=== PATIENT | female | born 1980 | race African-American/Black ===

== ENCOUNTER 2016-10-15 22:42 | Emergency (ER) | payer OTHER ==
[~2016-10-15] VITALS: Ht 160 cm; Wt 74.8 kg
[~2016-10-15 22:42] MED LIST: ASPI1TAB30 PO; CETI10TA22 PO; DOCU-27 PO; FLUT100D IH; IBUP-1060 PO; METH-37 PO; ONDA4TAB10 SL; OXYC-323 PO; PNV1TABL25 PO; PRED20TA PO; TRAM-29 PO; VENTOLIN HFA18 GM IH
[2016-10-15 23:10] VITALS: BP 148/77
--- NOTE | 2016-10-15 23:44 | PHYS DOC ---
Past Medical History Past Medical History: Asthma, Sciatica Past Surgical History: Additional Past Surgical Histo: C SECTION X3 Additional Information: 08/21 PPD Alcohol Use: Rarely Drug Use: None Adult General Chief Complaint Chief Complaint: COUGH HPI HPI Patient is a 36 year old female with history of asthma who presents with cough and shortness of breath for 4 days. Her cough has been productive. She also reports nasal drainage, sore throat, and body aches. She denies fever, ear pain , nausea, or vomiting. She has been using her inhaler every 3-4 hours. She did receive a flu shot this season. She denies any known sick contacts. Her PCP is Dr. Armani Neal. Review of Systems Review of Systems Constitutional: Denies fever or chills. [] Eyes: Denies change in visual acuity, redness, or eye pain. [] HENT: Denies ear pain. Reports sore throat and nasal drainage. Respiratory: Reports cough and shortness of breath. Cardiovascular: Denies chest pain, palpitations or edema. [] GI: Denies abdominal pain, nausea, vomiting, bloody stools or diarrhea. [] Musculoskeletal: Denies back pain or joint pain. Reports body aches. Integument: Denies rash or skin lesions. [] Neurologic: Denies headache, focal weakness or sensory changes. [] All systems reviewed and negative unless otherwise stated in the HPI. Allergies Allergies Allergies Coded Allergies Type Severity Reaction Last Updated Verified No Known Drug Allergies 04/26/16 No Physical Exam Physical Exam Constitutional: Well developed, well nourished, no acute distress, non-toxic appearance. [] HENT: Normocephalic, atraumatic, bilateral external ears normal, oropharynx moist, no oral exudates, nose normal. Bilateral TMs without erythema or bulging. There is no posterior pharyngeal erythema or tonsillar edema. Bilateral nasal turbinates are swollen and erythematous with purulent drainage, left more marked than the right. Eyes: PERRLA, EOMI, conjunctiva normal, no discharge. [] Neck: Normal range of motion, no tenderness, supple, no stridor. [] Cardiovascular: Heart rate regular rhythm, no murmur [] Lungs & Thorax: Bilateral breath sounds clear to auscultation without wheezes, rales, or rhonchi. Skin: Warm, dry, no erythema, no rash. [] Neurologic: Alert and oriented X 3, normal motor function, normal sensory function, no focal deficits noted. [] Psychologic: Affect normal, judgement normal, mood normal. [] Current Patient Data Vital Signs Vital Signs Date Time Temp Pulse Resp B/P Pulse Ox O2 Delivery O2 Flow Rate FiO2 10/15/16 23:10 98.5 67 20 100 Room Air 98.5 Lab Values Laboratory Tests Test 10/15/16 23:35 Influenza Type A Antigen Negative (NEGATIVE) Influenza Type B Antigen Negative (NEGATIVE) EKG EKG [] Radiology/Procedures Radiology/Procedures [] Course & Med Decision Making Course & Med Decision Making Pertinent Labs and Imaging studies reviewed. (See chart for details) [] Dragon Disclaimer Dragon Disclaimer This electronic medical record was generated, in whole or in part, using a voice recognition dictation system. Departure Departure Impression: Primary Impression: Bronchitis Disposition: HOME, SELF-CARE Condition: STABLE Referrals: ARMANI NEAL MD (PCP) Patient Instructions: Acute Bronchitis, [id number] Additional Instructions: Your flu test was negative today. Please complete all of the prescribed steroids, even if you are feeling better. Please use your inhaler as directed for cough or shortness of breath. Please follow up with your doctor within the next week. Return to the emergency department if you have any new or concerning symptoms. Scripts Prednisone 20 Mg [id number] Mg PO DAILY 5 Days Prov:MARK MELÉNDEZ 10/16/16 MARK MELÉNDEZ Oct 15, 2016 23:44
[2016-10-15 23:57] LABS: OBC FLU VALID
[2016-10-16] MEDS ORDERED: PRED20TA PO (00:08)
== END 2016-10-16 00:20 | disposition home or self-care (01) ==
LOC: ER 22:42
DX: J40 Bronchitis, not specified as acute or chronic (principal); J45.909 Unspecified asthma, uncomplicated; F17.200 Nicotine dependence, unspecified, uncomplicated
CPT/HCPCS: 87804; 99284

== ENCOUNTER 2017-05-25 23:30 | Emergency (ER) | payer OTHER ==
[~2017-05-25] VITALS: Ht 160 cm; Wt 81.6 kg
[~2017-05-25 23:30] MED LIST changes: -ASPI1TAB30 PO; +ASPI1TAB31 PO; +DOCU-109 PO; -DOCU-27 PO; -TRAM-29 PO; +TRAM-48 PO
[2017-05-25 23:33] VITALS: BP 116/69
--- NOTE | 2017-05-25 23:46 | PHYS DOC ---
Past Medical History Past Medical History: Asthma, Sciatica Past Surgical History: Additional Past Surgical Histo: C SECTION X3 Alcohol Use: Rarely Drug Use: None Adult General Chief Complaint Chief Complaint: ANKLE PROBLEM [facility] HPI Patient is a 36 year old female presents to the emergency department with complaints of right foot pain. She complains that 2 weeks ago she was jumping rope with her daughter and she inversion type injury to the right ankle. States that she was doing fine until yesterday when she tripped over her daughter causing a plantar flexion of the ankle. She presents with complaints of pain across the dorsal aspect of the foot and in the right ankle. She has no radiation pain. She has been ambulatory and extremity since incident. Review of Systems Review of Systems Constitutional: Denies fever or chills [] Eyes: Denies change in visual acuity, redness, or eye pain [] HENT: Denies nasal congestion or sore throat [] Respiratory: Denies cough or shortness of breath [] Cardiovascular: No additional information not addressed in HPI [] GI: Denies abdominal pain, nausea, vomiting, bloody stools or diarrhea [] : Denies dysuria or hematuria [] Musculoskeletal: Right foot and ankle pain Integument: Denies rash or skin lesions [] Neurologic: Denies headache, focal weakness or sensory changes [] Endocrine: Denies polyuria or polydipsia [] Allergies Allergies Allergies Coded Allergies Type Severity Reaction Last Updated Verified No Known Drug Allergies 04/26/16 No Physical Exam Physical Exam Constitutional: Well developed, well nourished, no acute distress, non-toxic appearance. [] HENT: Normocephalic, atraumatic, bilateral external ears normal, oropharynx moist, no oral exudates, nose normal. [] Eyes: PERRLA, EOMI, conjunctiva normal, no discharge. [] Neck: Normal range of motion, no tenderness, supple, no stridor. [] Cardiovascular:Heart rate regular rhythm, no murmur [] Lungs & Thorax: Bilateral breath sounds clear to auscultation [] Abdomen: Bowel sounds normal, soft, no tenderness, no masses, no pulsatile masses. [] Skin: Warm, dry, no erythema, no rash. [] Back: No tenderness, no CVA tenderness. [] Extremities: Exam of the right lower extremity: Right knee exam unremarkable, right ankle with mild tenderness over lateral malleolus. She has no tenderness medially. Achilles tendon is intact. She has mild tenderness over the dorsal aspect of the foot. There is no swelling of the ankle or the foot. Neurovascular is intact distally. Neurologic: Alert and oriented X 3, normal motor function, normal sensory function, no focal deficits noted. [] Psychologic: Affect normal, judgement normal, mood normal. [] Current Patient Data Vital Signs Vital Signs Date Time Temp Pulse Resp B/P (MAP) Pulse Ox O2 Delivery O2 Flow Rate FiO2 05/25/17 23:33 98.4 84 16 97 Room Air 98.4 EKG EKG [] Radiology/Procedures Radiology/Procedures Right foot and right ankle x-ray[] no acute bony abnormalities Course & Med Decision Making Course & Med Decision Making Pertinent Labs and Imaging studies reviewed. (See chart for details) [] Dragon Disclaimer Dragon Disclaimer This electronic medical record was generated, in whole or in part, using a voice recognition dictation system. Departure Departure Impression: Primary Impression: Ankle sprain Disposition: 01 HOME, SELF-CARE Condition: STABLE Referrals: TATI SKELTON MD (PCP) Patient Instructions: Ankle Sprain, RICE - Routine Care for Injuries Scripts Ibuprofen (IBUPROFEN) 800 Mg Tablet 800 MG PO PRN Q6HRS Y for INFLAMMATION, #20 TAB Prov: IJEOMA HUTCHINSON APRN 05/25/17 Problem Qualifiers Primary Impression: Ankle sprain Encounter type: initial encounter Involved ligament of ankle: unspecified ligament Laterality: right Qualified Codes: S93.401A - Sprain of unspecified ligament of right ankle, initial encounter IJEOMA HUTCHINSON APRN May 25, 2017 23:46
[2017-05-25] MEDS ORDERED: IBUP-1060 PO (23:53)
--- NOTE | 2017-05-26 09:55 | RAD ---
Right ankle, 3 views, 05/25/2017: History: Ankle pain No fracture or dislocation is identified. There is mild subcutaneous edema. IMPRESSION: No acute bony abnormality is detected. Right foot, 3 views, 05/25/2017: No fracture or dislocation is identified. No significant arthritic change is seen. There is moderate diffuse soft tissue swelling.
== END 2017-05-25 23:56 | disposition home or self-care (01) ==
LOC: ER 23:30
DX: S93.401A Sprain of unspecified ligament of right ankle, initial encounter (principal); J45.909 Unspecified asthma, uncomplicated; M54.30 Sciatica, unspecified side; W03.XXXA Other fall on same level due to collision with another person, initial encounter; Y93.89 Activity, other specified; Y92.89 Other specified places as the place of occurrence of the external cause; Y99.8 Other external cause status
CPT/HCPCS: 73610; 73630; 99284

== ENCOUNTER → 2017-07-15 | Outpatient (CLI) | payer OTHER ==
--- NOTE | 2017-07-15 14:02 | RAD ---
Pelvis with left hip, 3 views, 07/15/2017: History: Fall, left hip pain and swelling No fracture or dislocation is identified. The hip joint spaces are well-maintained. Surgical clips overlie the pelvis bilaterally, probably related to tubal ligation surgery. IMPRESSION: No acute bony abnormality is detected.
== END | disposition home or self-care (01) ==
LOC: RAD 10:59
PROVIDERS: ATTEND Physician Assistant
DX: M25.552 Pain in left hip (principal); M25.452 Effusion, left hip; Z91.81 History of falling
CPT/HCPCS: 73502

== ENCOUNTER 2017-10-05 00:36 | Emergency (ER) | payer OTHER ==
[2017-10-05 01:28] LABS: URINE HCG POC HCG NEGATIVE (Negative)
[2017-10-05 01:38] LABS: BILIRUBIN,URINE NEGATIVE (NEG); CLARITY,URINE CLEAR; COLOR,URINE YELLOW; GLUCOSE,URINE NEGATIVE (NEG); NITRITE,URINE NEGATIVE (NEG); PH,URINE 6.5; PROTEIN,URINE NEGATIVE (NEG-TRACE)
[2017-10-05 01:50] LABS: BACTERIA,URINE MODERATE /HPF (0-FEW); RBC,URINE 0 /HPF (0-2); SQUAMOUS EPITHELIAL CELL,UR MANY /LPF; WBC,URINE OCC /HPF (0-4)
[2017-10-05] MEDS: HYDROcodone/APAP 5/325MG 1 TAB TABLET PO ×2 (03:28)
[2017-10-05 03:57] LABS: ADD MAN DIFF? NO
[2017-10-05 03:59] LABS: BASO # 0.1 x10^3/uL (0.0-0.2); BASO % 0 % (0-3); EOS # 0.2 x10^3/uL (0.0-0.7); EOS % 1 % (0-3); HEMATOCRIT 41.4 % (36.0-47.0); LYMPH % 23 % (24-48); MEAN CORPUSCULAR HEMOGLOBIN 32 pg (25-35); MEAN CORPUSCULAR HGB CONC 34 g/dL (31-37); MEAN CORPUSCULAR VOLUME 94 fL (79-100); MONO # 1.1 x10^3/uL (0.0-1.1); MONO % 9 % (0-9); NEUT # 8.8 x10^3uL (1.8-7.7); NEUT % 67 % (31-73); PLATELET COUNT 340 x10^3/uL (140-400); RED BLOOD COUNT 4.41 x10^6/uL (3.50-5.40); RED CELL DISTRIBUTION WIDTH 13.7 % (11.5-14.5); WHITE BLOOD COUNT 13.1 x10^3/uL (4.0-11.0)
[2017-10-05 04:09] LABS: ANION GAP 6 (6-14); BLOOD UREA NITROGEN 15 mg/dL (7-20); BUN/CREATININE RATIO 19 (6-20); CALCIUM 8.9 mg/dL (8.5-10.1); CARBON DIOXIDE 28 mmol/L (21-32); CHLORIDE 105 mmol/L (98-107); CREATININE 0.8 mg/dL (0.6-1.0); GFR 98.8; GLUCOSE 104 mg/dL (70-99); POTASSIUM 4.4 mmol/L (3.5-5.1); SODIUM 139 mmol/L (136-145)
[2017-10-05 04:14] LABS: ALBUMIN 3.7 g/dL (3.4-5.0); ALBUMIN/GLOBULIN RATIO 0.9 (1.0-1.7); ALK PHOS 59 U/L (46-116); ALT (SGPT) 16 U/L (14-59); AST (SGOT) 17 U/L (15-37); TOTAL BILIRUBIN 0.1 mg/dL (0.2-1.0); TOTAL PROTEIN 7.6 g/dL (6.4-8.2)
[2017-10-07 16:26] LABS: CHLAMYDIA PROBE Negative (Negative); GC PROBE Negative (Negative)
== END 2017-10-05 05:20 | disposition home or self-care (01) ==
LOC: ER 00:36
DX: N83.9 Noninflammatory disorder of ovary, fallopian tube and broad ligament, unspecified (principal); M54.30 Sciatica, unspecified side
CPT/HCPCS: 36415; 76830; 76856; 80053; 81001; 81025; 85025; 87086; 87491; 87591; 99285-25; Q0111

== ENCOUNTER 2017-10-17 09:19 | Day surgery (SDC) | payer OTHER ==
[~2017-10-17 09:19] MED LIST changes: -ASPI1TAB31 PO; -CETI10TA22 PO; +DEXAMETHASONE SOD PHOS 20 MG/5 ML VIAL.; -DOCU-109 PO; -FLUT100D IH; +HYDROmorphone 2 MG/ML VIAL IV; -IBUP-1060 PO; +LIDOCAINE 1% PF 2 ML VIAL. ID; +LIDOCAINE 2% PF Vial for OR 5 ML VIAL.; -METH-37 PO; +MIDAZOLAM HCL/PF 2 MG/2 ML VIAL.; +MORPHINE SULFATE 4 MG/ML DISP.SYRIN. IV; -ONDA4TAB10 SL; +ONDANSETRON PF 4 MG/2 ML VIAL.; +ONDANSETRON PF 4 MG/2 ML VIAL. IV; -OXYC-323 PO; -PNV1TABL25 PO; -PRED20TA PO; +PROPOFOL 20 ML IV; +ROCURONIUM 50 MG/5 ML VIAL.; +SURGICEL HEMOSTAT 4X8 EACH.; -TRAM-48 PO; -VENTOLIN HFA18 GM IH; +ceFAZolin 2GM PREMIX 2 GM/50 ML BAG IV; +fentaNYL PF VIAL 100 MCG/2 ML VIAL; +fentaNYL PF VIAL 100 MCG/2 ML VIAL IV
[2017-10-17] MEDS: IV RINGERS,LACTATED 1000ML 1,000 ML IV (09:58)
[2017-10-17 10:57] LABS: NEG OBC UR NEG; POS OBC UR POS; U PREG PATIENT NEGATIVE (NEG)
[2017-10-17] MEDS: BUPIVACAINE-EPI 0.25%-1:200000 MPF 30 ML VIAL. INJ (12:11)
[2017-10-17] MEDS ORDERED: fentaNYL PF VIAL 100 MCG/2 ML VIAL (12:23)
[2017-10-17] MEDS ORDERED: NEOSTIGMINE METHYLSULFATE 5 MG/5 ML SYRINGE. (12:31)
[2017-10-17] MEDS ORDERED: GLYCOPYRROLATE 1 MG/5 ML VIAL. (12:31)
[2017-10-17] MEDS ORDERED: SEVOFLURANE 61 TO 120 MINUTES. IH (12:31)
[2017-10-17] MEDS ORDERED: hydrALAZINE 20 MG/ML VIAL. (12:42)
[2017-10-17] MEDS: PROCHLORPERAZINE 10 MG/2 ML VIAL. IV (13:08)
[2017-10-17] MEDS: fentaNYL PF VIAL 100 MCG/2 ML VIAL IV ×2 (13:09→13:26)
[2017-10-17] MEDS: oxyCODONE/APAP 5/325 1 TAB TABLET PO (14:22)
== END 2017-10-17 15:07 | disposition home or self-care (01) ==
LOC: SURG 09:19
DX: N73.6 Female pelvic peritoneal adhesions (postinfective) (principal); N83.202 Unspecified ovarian cyst, left side; F32.9 Major depressive disorder, single episode, unspecified; G43.909 Migraine, unspecified, not intractable, without status migrainosus; I10 Essential (primary) hypertension; J45.909 Unspecified asthma, uncomplicated; E66.9 Obesity, unspecified; G47.30 Sleep apnea, unspecified; Z98.890 Other specified postprocedural states; Z87.440 Personal history of urinary (tract) infections
CPT/HCPCS: 58661; 81025; 88305; A4215; C1782; J0360; J0690; J0780; J1100; J2250; J2405; J2704; J2710; J3010; J3490; J7030; J7120

== ENCOUNTER → 2018-03-21 | Outpatient (CLI) | payer OTHER | END | disposition home or self-care (01) | LOC: KCIC 12:13 | DX: M25.562 Pain in left knee (principal); M25.551 Pain in right hip; J45.909 Unspecified asthma, uncomplicated; I10 Essential (primary) hypertension; F32.9 Major depressive disorder, single episode, unspecified; G43.909 Migraine, unspecified, not intractable, without status migrainosus; E66.9 Obesity, unspecified; Z87.440 Personal history of urinary (tract) infections | CPT/HCPCS: 73502; 73562 ==

== ENCOUNTER 2018-07-02 14:14 | Emergency (ER) | payer OTHER ==
[~2018-07-02] VITALS: Ht 160 cm; Wt 80.7 kg
[~2018-07-02 14:14] MED LIST changes: +ASPI1TAB31 PO; +CETI10TA22 PO; -DEXAMETHASONE SOD PHOS 20 MG/5 ML VIAL.; +DOCU-109 PO; +FLUT100D IH; -HYDROmorphone 2 MG/ML VIAL IV; +IBUP-1060 PO; -LIDOCAINE 1% PF 2 ML VIAL. ID; -LIDOCAINE 2% PF Vial for OR 5 ML VIAL.; +LISI10TA2 PO; +METH-37 PO; -MIDAZOLAM HCL/PF 2 MG/2 ML VIAL.; -MORPHINE SULFATE 4 MG/ML DISP.SYRIN. IV; +ONDA4TAB10 SL; -ONDANSETRON PF 4 MG/2 ML VIAL.; -ONDANSETRON PF 4 MG/2 ML VIAL. IV; +OXYC-323 PO; +PNV1TABL25 PO; +PRED20TA PO; -PROPOFOL 20 ML IV; -ROCURONIUM 50 MG/5 ML VIAL.; -SURGICEL HEMOSTAT 4X8 EACH.; +TRAM-48 PO; +TRAM50TA PO; +VENTOLIN HFA18 GM IH; -ceFAZolin 2GM PREMIX 2 GM/50 ML BAG IV; -fentaNYL PF VIAL 100 MCG/2 ML VIAL; -fentaNYL PF VIAL 100 MCG/2 ML VIAL IV
[2018-07-02 14:26] VITALS: BP 145/83
[2018-07-02 14:58] LABS: BASO % 0 % (0-3); EOS # 0.1 x10^3/uL (0.0-0.7); EOS % 2 % (0-3); HEMATOCRIT 42.4 % (36.0-47.0); HEMOGLOBIN 14.7 g/dL (12.0-15.5); LYMPH # 2.1 x10^3/uL (1.0-4.8); LYMPH % 27 % (24-48); MEAN CORPUSCULAR HEMOGLOBIN 33 pg (25-35); MEAN CORPUSCULAR HGB CONC 35 g/dL (31-37); MEAN CORPUSCULAR VOLUME 95 fL (79-100); MONO # 0.6 x10^3/uL (0.0-1.1); MONO % 8 % (0-9); NEUT # 4.7 x10^3uL (1.8-7.7); NEUT % 63 % (31-73); PLATELET COUNT 349 x10^3/uL (140-400); RED BLOOD COUNT 4.48 x10^6/uL (3.50-5.40); RED CELL DISTRIBUTION WIDTH 13.6 % (11.5-14.5); WHITE BLOOD COUNT 7.5 x10^3/uL (4.0-11.0)
[2018-07-02 15:14] LABS: CALCIUM 9.1 mg/dL (8.5-10.1); CREATININE 0.8 mg/dL (0.6-1.0); GFR 98.8; POTASSIUM 4.2 mmol/L (3.5-5.1)
[2018-07-02 15:20] LABS: ALBUMIN 3.8 g/dL (3.4-5.0); DIRECT BILIRUBIN 0.1 mg/dL (0.0-0.2); TOTAL BILIRUBIN 0.2 mg/dL (0.2-1.0); TOTAL PROTEIN 7.7 g/dL (6.4-8.2)
[2018-07-02 16:06] LABS: BILIRUBIN,URINE NEGATIVE (NEG); CLARITY,URINE CLOUDY; COLOR,URINE YELLOW; NITRITE,URINE NEGATIVE (NEG); PROTEIN,URINE NEGATIVE (NEG-TRACE); UROBILINOGEN,URINE 0.2 mg/dL (0.2 mg/dL)
[2018-07-02 16:22] LABS: BACTERIA,URINE FEW /HPF (0-FEW); RBC,URINE OCC /HPF (0-2); SQUAMOUS EPITHELIAL CELL,UR MOD /LPF; WBC,URINE OCC /HPF (0-4)
--- NOTE | 2018-07-02 20:10 | PHYS DOC ---
Past Medical History Past Medical History: Asthma, Hypertension Past Surgical History: Additional Past Surgical Histo: C SECTION X3 Alcohol Use: None Drug Use: None Adult General Chief Complaint Chief Complaint: OTHER COMPLAINTS [facility] HPI Patient is a 37 year old female who presents with complaints of multiple paresthesias. Patient complains of numbness in the bilateral hands and bilateral feet. Her symptoms have been worsening over the last 2 weeks. She has not had any trauma or pain. 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 She has no loss of motor strength. No fever or chills. She relates that she does have family members diagnosed with fibromyalgia who had similar symptoms when their diagnosis was initially made. The patient has been eating and drinking normally. No recent illness. No recent travel. She cannot say specific dermatomes that are affected. She complains of numbness and both hands over their entirety and both feet. Her symptoms are worse sometimes at night. Review of Systems Review of Systems Constitutional: Denies fever or chills Eyes: Denies change in visual acuity, redness, or eye pain HENT: Denies nasal congestion or sore throat Respiratory: Denies cough or shortness of breath Cardiovascular: No additional information not addressed in HPI GI: Denies abdominal pain, nausea, vomiting : Denies dysuria or hematuria Integument: Denies rash or skin lesions Neurologic: Denies headache, focal weakness Endocrine: Denies polyuria All other systems were reviewed and found to be within normal limits, except as documented in this note. Allergies Allergies Allergies Coded Allergies Type Severity Reaction Last Updated Verified No Known Drug Allergies 10/17/17 No Physical Exam Physical Exam Constitutional: Well developed, well nourished, no acute distress, non-toxic appearance HENT: Normocephalic, atraumatic, bilateral external ears normal, oropharynx moist Eyes: PERRLA, EOMI, conjunctiva normal Neck: Normal range of motion, no tenderness Cardiovascular:Heart rate regular rhythm Lungs & Thorax: Bilateral breath sounds clear to auscultation Skin: Warm, dry, no erythema, Extremities: No tenderness Neurologic: Alert and oriented X 3 Psychologic: Affect normal Current Patient Data Vital Signs Vital Signs Date Time Temp Pulse Resp B/P (MAP) Pulse Ox O2 Delivery O2 Flow Rate FiO2 07/02/18 14:26 98.7 67 16 145/83 (103) 100 Room Air 98.7 Lab Values Laboratory Tests Test 07/02/18 14:52 07/02/18 15:58 White Blood Count 7.5 x10^3/uL (4.0-11.0) Red Blood Count 4.48 x10^6/uL (3.50-5.40) Hemoglobin 14.7 g/dL (12.0-15.5) Hematocrit 42.4 % (36.0-47.0) Mean Corpuscular Volume 95 fL (79-100) Mean Corpuscular Hemoglobin 33 pg (25-35) Mean Corpuscular Hemoglobin Concent 35 g/dL (31-37) Red Cell Distribution Width 13.6 % (11.5-14.5) Platelet Count 349 x10^3/uL (140-400) Neutrophils (%) (Auto) 63 % (31-73) Lymphocytes (%) (Auto) 27 % (24-48) Monocytes (%) (Auto) 8 % (0-9) Eosinophils (%) (Auto) 2 % (0-3) Basophils (%) (Auto) 0 % (0-3) Neutrophils # (Auto) 4.7 x10^3uL (1.8-7.7) Lymphocytes # (Auto) 2.1 x10^3/uL (1.0-4.8) Monocytes # (Auto) 0.6 x10^3/uL (0.0-1.1) Eosinophils # (Auto) 0.1 x10^3/uL (0.0-0.7) Basophils # (Auto) 0.0 x10^3/uL (0.0-0.2) Sodium Level 137 mmol/L (136-145) Potassium Level 4.2 mmol/L (3.5-5.1) Chloride Level 102 mmol/L (98-107) Carbon Dioxide Level 29 mmol/L (21-32) Anion Gap 6 (6-14) Blood Urea Nitrogen 7 mg/dL (7-20) Creatinine 0.8 mg/dL (0.6-1.0) Estimated GFR (Cockcroft-Gault) 98.8 Glucose Level 99 mg/dL (70-99) Calcium Level 9.1 mg/dL (8.5-10.1) Total Bilirubin 0.2 mg/dL (0.2-1.0) Direct Bilirubin 0.1 mg/dL (0.0-0.2) Aspartate Amino Transferase (AST) 14 U/L (15-37) L Alanine Aminotransferase (ALT) 14 U/L (14-59) Alkaline Phosphatase 63 U/L (46-116) Total Protein 7.7 g/dL (6.4-8.2) Albumin 3.8 g/dL (3.4-5.0) Vitamin B12 Level 460 pg/mL (247-911) Serum Folate 7.30 ng/ml (3.2-20.0) Thyroid Stimulating Hormone (TSH) 0.863 uIU/mL (0.358-3.74) Urine Collection Type Unknown Urine Color Yellow Urine Clarity Cloudy Urine pH 7.0 Urine Specific [place] 1.020 Urine Protein Negative mg/dL (NEG-TRACE) Urine Glucose (UA) Negative mg/dL (NEG) Urine Ketones (Stick) Negative mg/dL (NEG) Urine Blood Small (NEG) Urine Nitrite Negative (NEG) Urine Bilirubin Negative (NEG) Urine Urobilinogen Dipstick 0.2 mg/dL (0.2 mg/dL) Urine Leukocyte Esterase Negative (NEG) Urine RBC Occ /HPF (0-2) Urine WBC Occ /HPF (0-4) Urine Squamous Epithelial Cells Mod /LPF Urine Bacteria Few /HPF (0-FEW) Urine Mucus Mod /LPF Laboratory Tests 07/02/18 14:52 Laboratory Tests 07/02/18 14:52 EKG EKG [] Radiology/Procedures Radiology/Procedures [] Course & Med Decision Making Course & Med Decision Making Pertinent Labs and Imaging studies reviewed. (See chart for details) Some vague complaints of paresthesias. On physical exam, the numbness is worse with palpation over the cubital tunnel in the carpal tunnel. The skin is normal. Sensation to light touch is intact over all dermatomes. She has 5 over 5 motor strength. In discussions with the patient, her symptoms are worse at night. She could be having simple carpal tunnel or cubital tunnel symptoms but would be strange to have these bilaterally. Additionally, this does not explain the numbness she is feeling in her feet bilaterally. Her physical exam is normal. Her lab panel in the ER is normal today. I did compress the patient's spine, Spurling's test, and this also made the numbness in her hands worse which raises some suspicion for degenerative disc disease in the cervical spine although this would typically be bilaterally. Overall, no emergency cause for her symptoms was identified. The patient was advised to follow-up with her primary care doctor for further evaluation. She was agreeable to this plan of care. All her questions were answered prior to discharge home. Dragon Disclaimer Dragon Disclaimer This electronic medical record was generated, in whole or in part, using a voice recognition dictation system. Departure Departure Impression: Primary Impression: Paresthesias Disposition: HOME, SELF-CARE Condition: GOOD Patient Instructions: Paresthesia Additional Instructions: Your labs today including CBC, BMP, TSH, B12, Folate, UA were normal. Follow up with Dr. Neal as discussed. KISHAN ARCHER DO Jul 02, 2018 20:10
== END 2018-07-02 16:56 | disposition home or self-care (01) ==
LOC: ER 14:14
DX: R20.2 Paresthesia of skin (principal); J45.909 Unspecified asthma, uncomplicated; I10 Essential (primary) hypertension
CPT/HCPCS: 36415; 80048; 80076; 81001; 82607; 82746; 84443; 85025; 99284

== ENCOUNTER 2018-09-27 21:30 | Emergency (ER) | payer OTHER ==
[~2018-09-27] VITALS: Ht 160 cm; Wt 86.6 kg
[~2018-09-27 21:30] MED LIST changes: -OXYC-323 PO; +OXYC1TAB15 PO
[2018-09-27 21:48] VITALS: BP 127/82
[2018-09-27] MEDS ORDERED: METH4TAB2 PO (22:39)
[2018-09-27] MEDS ORDERED: DICL50TA4 PO (22:39)
[2018-09-27] MEDS ORDERED: GABA600T7 PO (22:39)
[2018-09-27] MEDS ORDERED: CYCL10TA2 PO (22:39)
--- NOTE | 2018-09-27 22:40 | PHYS DOC ---
Past Medical History Past Medical History: Asthma, Hypertension Past Surgical History: Additional Past Surgical Histo: C SECTION X3 Alcohol Use: None Drug Use: None Adult General Chief Complaint Chief Complaint: UPPER EXTREMITY PAIN HPI HPI Patient is a 38 year old female with history of asthma, hypertension, who presents to the ED today complaining of mild throbbing intermittent left elbow and left shoulder pain worse on range of motion that began today. Patient denies any known injury. Patient states she already has couple tunneled bilateral wrists with numbness to bilateral upper extremities. She states she has been following up with a neurologist who scheduled her for nerve testing next week. Patient denies any pain radiating. She states most of the pain is actually on the left elbow. Review of Systems Review of Systems Constitutional: Denies fever or chills [] Eyes: Denies change in visual acuity, redness, or eye pain [] HENT: Denies nasal congestion or sore throat [] Respiratory: Denies cough or shortness of breath [] Cardiovascular: No additional information not addressed in HPI [] GI: Denies abdominal pain, nausea, vomiting, bloody stools or diarrhea [] : Denies dysuria or hematuria [] Musculoskeletal: Reports left elbow and left shoulder pain Integument: Denies rash or skin lesions [] Neurologic: Denies headache, focal weakness or sensory changes [] All other systems were reviewed and found to be within normal limits, except as documented in this note. Allergies Allergies Allergies Coded Allergies Type Severity Reaction Last Updated Verified No Known Drug Allergies 10/17/17 No Physical Exam Physical Exam Constitutional: Well developed, well nourished, no acute distress, non-toxic appearance. [] HENT: Normocephalic, atraumatic, bilateral external ears normal, oropharynx moist, no oral exudates, nose normal. [] Eyes: PERRLA, EOMI, conjunctiva normal, no discharge. [] Neck: Normal range of motion, no tenderness, supple, no stridor. [] Cardiovascular:Heart rate regular rhythm, no murmur [] Lungs & Thorax: Bilateral breath sounds clear to auscultation [] Abdomen: Bowel sounds normal, soft, no tenderness, no masses, no pulsatile masses. [] Skin: Warm, dry, no erythema, no rash. [] Back: No tenderness, no CVA tenderness. [] Extremities: Reproducible left elbow pain on range of motion. No shoulder pain elicited during exam. Full range of motion to the left upper extremity. Adequate radial, medial, ulnar sensation to the left upper extremity. +2 left radial pulse. Neurologic: Alert and oriented X 3, normal motor function, normal sensory function, no focal deficits noted. [] Psychologic: Affect normal, judgement normal, mood normal. [] Current Patient Data Vital Signs Vital Signs Date Time Temp Pulse Resp B/P (MAP) Pulse Ox O2 Delivery O2 Flow Rate FiO2 09/27/18 21:48 98.5 77 18 127/82 (97) 98 Room Air 98.5 EKG EKG [] Radiology/Procedures Radiology/Procedures [] Course & Med Decision Making Course & Med Decision Making Pertinent Labs and Imaging studies reviewed. (See chart for details) This is a 38-year-old female patient presenting to the ED today with left elbow and left shoulder pain suspicious of tendinitis. No known injury. Discharged with instructions to follow-up with the PCP, and orthopedic doctor provided. Provided prescription for diclofenac, Medrol Dosepak, cyclobenzaprine and gabapentin. Dragon Disclaimer Dragon Disclaimer This electronic medical record was generated, in whole or in part, using a voice recognition dictation system. Departure Departure Impression: Primary Impression: Tendinitis of shoulder Additional Impressions: Tendinitis of left elbow Carpal tunnel syndrome of left wrist Carpal tunnel syndrome of right wrist Disposition: 01 HOME, SELF-CARE Condition: STABLE Referrals: TATI SKELTON MD (PCP) AVIS JUAREZ MD follow up in 1 week Patient Instructions: Carpal Tunnel Syndrome, Tendinitis Additional Instructions: You were evaluated in the emergency room and noted to have tendinitis in the shoulder and elbow. Take the prescribed medications as ordered. Come back to the ED at any point symptoms worsen. Scripts Cyclobenzaprine Hcl (CYCLOBENZAPRINE HCL) 10 Mg Tablet 1 TAB PO TID, #30 TAB Prov: MUTUNGAMAGALY [employer] SPECIALIST 09/27/18 Gabapentin (GABAPENTIN) 600 Mg Tablet 600 MG PO TID for NEUROGENIC PAIN, #30 TAB Prov: MUTUNGAMAGALY [employer] SPECIALIST 09/27/18 Methylprednisolone (MEDROL) 4 Mg Tab.ds.pk 1 PKG PO UD, #1 PKG Prov: MUTUNGAMAGALY [employer] SPECIALIST 2/9/19 Diclofenac Sodium (DICLOFENAC SODIUM) 50 Mg Tablet. 1 TAB PO BID, #60 TAB 2 Refills Prov: MAGALY OLMEDO APRN 09/27/18 Problem Qualifiers Primary Impression: Tendinitis of shoulder Laterality: left Qualified Codes: M75.82 - Other shoulder lesions, left shoulder MAGALY OLMEDO APRN Sep 27, 2018 22:40
== END 2018-09-27 22:55 | disposition home or self-care (01) ==
LOC: ER 21:30
DX: M75.82 Other shoulder lesions, left shoulder (principal); M77.8 Other enthesopathies, not elsewhere classified; G56.03 Carpal tunnel syndrome, bilateral upper limbs; J45.909 Unspecified asthma, uncomplicated; I10 Essential (primary) hypertension; Z98.890 Other specified postprocedural states
CPT/HCPCS: 99283

== ENCOUNTER 2018-12-10 09:53 | Emergency (ER) | payer OTHER ==
[~2018-12-10] VITALS: Ht 160 cm; Wt 85.7 kg
[~2018-12-10 09:53] MED LIST changes: +CYCL10TA2 PO; +DICL50TA4 PO; +GABA600T7 PO; +METH4TAB2 PO
[2018-12-10 10:07] VITALS: BP 157/95
[2018-12-10] MEDS ORDERED: IBUPROFEN 400 MG TABLET. PO ONE (10:15)
--- NOTE | 2018-12-10 10:54 | RAD ---
Right ANKLE AP, LATERAL, OBLIQUE Clinical Indication: twisted ankle 2 days ago Comparison: Right ankle, 3 views, June 04, 2017. Findings: There is no acute fracture or dislocation. Mineralization is normal. Joint spaces are maintained. Tiny calcaneal bone spur inferiorly. The ankle mortise is intact. There is no ankle joint effusion. There is no radiographically apparent soft tissue swelling. IMPRESSION: No acute fracture. Electronically signed by: Enzo Oliva MD (12/10/2018 10:51 AM) [id number]
--- NOTE | 2018-12-10 10:58 | PHYS DOC ---
Past Medical History Past Medical History: Asthma, Hypertension Past Surgical History: Additional Past Surgical Histo: C SECTION X3 Alcohol Use: None Drug Use: None Adult General Chief Complaint Chief Complaint: ANKLE PROBLEM HPI HPI 38-year-old female presents to ER for complaints of right ankle injury 2 days ago. Patient states she was walking when she believes she rolled her right ankle and since has had pain with walking. She reports pain radiates into right side of foot. She denies skin discoloration or swelling. She reports she took ibuprofen yesterday denies any [id number] medications today. She reports she has been weightbearing since pain onset. She denies any other symptoms. Review of Systems Review of Systems Musculoskeletal: Reports ankle pain radiating into rt side of foot- reports she has been able to bear weight on rt lower extremity Integument: Denies abrasions/bruising/wounds Neurologic: Denies focal weakness or sensory changes [] All other systems were reviewed and found to be within normal limits, except as documented in this note. Current Medications Current Medications Current Medications Medications (Trade) Dose Ordered Sig/Vijay Start Time Stop Time Status Last Admin Dose Admin Ibuprofen (Motrin) 600 mg 1X ONCE 12/10/18 10:15 12/10/18 10:18 DC 12/10/18 11:03 600 MG Allergies Allergies Allergies Coded Allergies Type Severity Reaction Last Updated Verified No Known Drug Allergies 10/17/17 No Physical Exam Physical Exam Constitutional: Well developed, well nourished, no acute distress, non-toxic appearance. [] Neck: Normal range of motion, supple Cardiovascular:Heart rate regular Lungs & Thorax: Resp. equal/nonlabored Skin: Warm, dry Extremities: No cyanosis, no clubbing, ROM intact, no edema. 2+ bilat. dorsalis pedis/posterior tibial. Tender on palp. lateral/medial rt malleolus into rt lateral foot below malleolus- no tenderness in dorsal surface of foot/toes. No ecchymosis/erythema. Neurologic: Alert and oriented X 3, normal motor function, normal sensory function, no focal deficits noted. [] Psychologic: Affect normal, judgement normal, mood normal. [] Current Patient Data Vital Signs Vital Signs Date Time Temp Pulse Resp B/P (MAP) Pulse Ox O2 Delivery O2 Flow Rate FiO2 12/10/18 10:07 98.1 75 20 157/95 (115) 100 Room Air 98.1 EKG EKG [] Radiology/Procedures Radiology/Procedures PROCEDURE: ANKLE RIGHT 3V Right ANKLE AP, LATERAL, [place] Clinical Indication: twisted ankle 2 days ago Comparison: Right ankle, 3 views, June 04, 2017. Findings: There is no acute fracture or dislocation. Mineralization is normal. Joint spaces are maintained. Tiny calcaneal bone spur inferiorly. The ankle mortise is intact. There is no ankle joint effusion. There is no radiographically apparent soft tissue swelling. IMPRESSION: No acute fracture. Electronically signed by: Enzo Oliva MD (12/10/2018 10:51 AM) [id number] DICTATED and SIGNED BY: ENZO OLIVA MD DATE: 12/10/18 1051 Course & Med Decision Making Course & Med Decision Making Pertinent Imaging studies reviewed. (See chart for details) Patient was evaluated in the ER for complaints of right ankle pain-he was provided with dose of ibuprofen while in the ER. X-ray was obtained with no acute findings. X-ray results were discussed with patient. Discussed plans for Dao wrap and air splint application prior to discharge and if symptoms persist patient follow-up with orthopedic doctor. RICE acronym discussed. Education provided on signs and symptoms to return to ER. Discharge instructions were discussed. Will provide orthop. referral info on d/c paperwork. Discussed crutches however patient reported she had been walking without crutches and thinks she will do just fine without them. Prior to and following dao wrap and splint application patient was PMS intact in right lower extremity. Patient did report with wrap and splint on her ankle pain had improved while walking. Dragon Disclaimer Dragon Disclaimer This electronic medical record was generated, in whole or in part, using a voice recognition dictation system. Departure Departure Impression: Primary Impression: Injury of ankle, right Disposition: 01 HOME, SELF-CARE Condition: STABLE Referrals: TATI SKELTON MD (PCP) CAROLYN SUTHERLAND MD Patient Instructions: Ankle Pain, Elastic Bandage and RICE Additional Instructions: Tylenol and/or ibuprofen as needed for pain as directed on container. Ice pack every 3-4 hours for 20-30 minutes at a time to affected area of pain. If symptoms persist follow-up with orthopedic doctor for reevaluation and further care. DOUG JIANG APRN Dec 10, 2018 10:58
== END 2018-12-10 11:37 | disposition home or self-care (01) ==
LOC: ER 09:53
DX: S99.811A Other specified injuries of right ankle, initial encounter (principal); J45.909 Unspecified asthma, uncomplicated; I10 Essential (primary) hypertension; Z98.890 Other specified postprocedural states; X50.9XXA Other and unspecified overexertion or strenuous movements or postures, initial encounter; Y93.01 Activity, walking, marching and hiking; Y92.89 Other specified places as the place of occurrence of the external cause; Y99.8 Other external cause status
CPT/HCPCS: 29515; 73610; 99284